=== PATIENT | female | born 1980 | race Caucasian/White ===

== ENCOUNTER 2016-07-22 11:17 | Emergency (ER) | payer BC ==
[2015-10-12 12:52] VITALS: Ht 172.7 cm; Wt 79.4 kg
[~2016-07-22] VITALS: Ht 172.7 cm; Wt 79.4 kg
--- NOTE | 2016-07-22 11:20 | NUR ---
Patient to ER bed 06 to gown for evaluation. Side rails up. Report given to Ruby
[2016-07-22 11:23] VITALS: BP 117/70; PULSE 59; RESP 18; TEMP 98.3; O2SAT 97
--- NOTE | 2016-07-22 11:35 | NUR ---
PT RECEIVED IN ROOM 6, ALERT, WITH CHIEF COMPLAINT OF VAGINAL BLEEDING, "I WAS HAVING ABDOMINAL CRAMPS LAST NIGHT AND THIS MORNING" " NO PAIN AT THIS TIME".
--- NOTE | 2016-07-22 11:42 | NUR ---
ER at bedside examining patient.
[2016-07-22 11:56] LABS: BILIRUBIN,URINE NEGATIVE (NEGATIVE); BLOOD, URINE 3+ (NEGATIVE); CLARITY/URINE CLEAR (CLEAR); COLOR,URINE YELLOW (YELLOW); GLUCOSE,URINE NEGATIVE (NEGATIVE); KETONES,URINE NEGATIVE (NEGATIVE); LEUKOCYTE ESTERASE ,URINE NEGATIVE (NEGATIVE); NITRITE, URINE NEGATIVE (NEGATIVE); PROTEIN URINE NEGATIVE (NEGATIVE); UROBILINOGEN,URINE 0.2 (0.2-1.0)
[2016-07-22 12:00] LABS: BASOPHILS # (AUTO) 0.1 K/uL (0.0-0.2); BASOPHILS % (AUTO) 0.9 % (0.0-2.0); EOSINOPHILS # (AUTO) 0.1 K/uL (0.0-0.4); EOSINOPHILS % (AUTO) 1.6 % (0.0-4.0); HEMATOCRIT 40.3 % (36-48); HEMOGLOBIN 13.6 g/dL (12.0-16.0); LYMPHOCYTES # (AUTO) 3.1 K/uL (1.0-5.5); MEAN CORPUSCULAR HEMOGLOBIN 31 pg (27-31); MEAN CORPUSCULAR HGB CONC 34 % (32-36); MEAN CORPUSCULAR VOLUME 92 fL (79.0-98.0); MONOCYTES # (AUTO) 0.5 K/uL (0.0-1.0); MONOCYTES % (AUTO) 5.6 % (1.7-9.3); NEUTROPHILS # (AUTO) 5.6 K/uL (1.8-7.7); NEUTROPHILS % (AUTO) 58.9 % (40.0-70.0); PLATELET COUNT (AUTO) 238 K/uL (130-430); RED BLOOD CELL COUNT(AUTO) 4.41 MIL/uL (4.2-6.2); RED CELL DISTRIBUTION WIDTH 12.3 % (9.0-15.0); WHITE BLOOD COUNT (AUTO) 9.4 K/uL (4.8-10.8)
--- NOTE | 2016-07-22 12:00 | NUR ---
BLOOD DRAWN BY STRIP TANK TENDER FOR TESTS.
[2016-07-22 12:08] LABS: BACTERIA,URINE RARE /HPF (None Seen); MUCUS,URINE 1+ /LPF (None Seen); WBC,URINE 0-3 /HPF (0-3)
--- NOTE | 2016-07-22 13:08 | NUR ---
Patient given written and verbal discharge instructions and verbalizes understanding. ER MD discussed with patient the results and treatment provided. Patient in stable condition. ID arm band removed. Rx of [place] given. Patient educated on pain management and to follow up with PMD. Pain Scale 0/10. Opportunity for questions provided and answered.
[2016-07-22 13:09] VITALS: BP 104/47; PULSE 50; RESP 16; O2SAT 97
== END 2016-07-22 13:09 | disposition home or self-care (01) ==
LOC: SED 11:17
DX: O21.9 Vomiting of pregnancy, unspecified (principal); Z3A.11 11 weeks gestation of pregnancy; Z88.5 Allergy status to narcotic agent; Z88.8 Allergy status to other drugs, medicaments and biological substances
CPT/HCPCS: 36415; 76805-TC; 81000-TC; 81025; 84702-TC; 85025; 86900; 86901; 99285

== ENCOUNTER 2016-07-25 06:35 | Day surgery (SDC) | payer BC ==
[~2016-07-25] VITALS: Ht 172.7 cm; Wt 78.9 kg
[2016-07-25 08:28] LABS: BASOPHILS # (AUTO) 0.1 K/uL (0.0-0.2); BASOPHILS % (AUTO) 0.8 % (0.0-2.0); EOSINOPHILS # (AUTO) 0.2 K/uL (0.0-0.4); EOSINOPHILS % (AUTO) 2.9 % (0.0-4.0); HEMATOCRIT 38.2 % (36-48); HEMOGLOBIN 12.6 g/dL (12.0-16.0); LYMPHOCYTES # (AUTO) 1.8 K/uL (1.0-5.5); MEAN CORPUSCULAR HEMOGLOBIN 31 pg (27-31); MEAN CORPUSCULAR HGB CONC 33 % (32-36); MEAN CORPUSCULAR VOLUME 93 fL (79.0-98.0); MONOCYTES # (AUTO) 0.5 K/uL (0.0-1.0); MONOCYTES % (AUTO) 7.8 % (1.7-9.3); NEUTROPHILS # (AUTO) 3.9 K/uL (1.8-7.7); NEUTROPHILS % (AUTO) 60.5 % (40.0-70.0); PLATELET COUNT (AUTO) 179 K/uL (130-430); RED BLOOD CELL COUNT(AUTO) 4.12 MIL/uL (4.2-6.2); RED CELL DISTRIBUTION WIDTH 12.7 % (9.0-15.0); WHITE BLOOD COUNT (AUTO) 6.5 K/uL (4.8-10.8)
[2016-07-25] MEDS ORDERED: PROPOFOL 200MG/ 20ML VIAL (DIPRIVAN) IV ONE (08:45)
[2016-07-25] MEDS ORDERED: fentaNYL CITRATE/PF 100 MCG/2 ML AMP IVP ONE (08:45)
[2016-07-25] MEDS ORDERED: SEVOFLURANE 15 MIN GAS INH ONE (08:45)
[2016-07-25] MEDS ORDERED: ONDANSETRON HCL 4 MG/2 ML VIAL IVP ONE (08:45)
[2016-07-25] MEDS ORDERED: METHYLERGONOVINE MALEATE 0.2 MG/ML AMP IM ONE (08:45)
[2016-07-25] MEDS ORDERED: MIDAZOLAM HCL 5 MG/5 ML VIAL IVP ONE (08:45)
[2016-07-25] MEDS ORDERED: KETOROLAC TROMETHAMINE 30 MG VIAL IVP ONE (08:45)
[2016-07-25] MEDS ORDERED: LR 1,000 ML IV SCH (09:28)
[2016-07-25] MEDS ORDERED: MEPERIDINE HCL/PF 25 MG/ML DISP.SYRIN IVP PRN ×2 (09:30)
[2016-07-25] MEDS ORDERED: KETOROLAC TROMETHAMINE 30 MG VIAL IVP PRN (09:30)
[2016-07-25] MEDS ORDERED: ONDANSETRON HCL 4 MG/2 ML VIAL IVP PRN ×2 (09:30→10:15)
[2016-07-25] MEDS ORDERED: PROMETHAZINE HCL 25 MG/ML AMP IM PRN (10:15)
[2016-07-25] MEDS ORDERED: HYDROmorphone 2 MG TAB PO PRN (10:15)
[2016-07-25 12:18] VITALS: BP_SYST 107
== END 2016-07-25 12:00 | disposition home or self-care (01) ==
LOC: SDS 06:35 → SMU 07:12 → SDS 12:00
PROVIDERS: ATTEND Obstetrics & Gynecology
DX: O02.1 Missed abortion (principal); Q96.9 Turner's syndrome, unspecified; K90.0 Celiac disease; Z98.890 Other specified postprocedural states
CPT/HCPCS: 36415; 59820; 85025; 86886; 86900; 86901; 88305; J1885; J2210; J2250; J2405; J2704; J3010; J7120

== ENCOUNTER 2017-06-25 00:01 | Inpatient (IN) | payer BC ==
[~2017-06-25] VITALS: Ht 172.7 cm; Wt 91.2 kg
[2017-06-25] MEDS ORDERED: LR 1,000 ML IV ONE (00:21)
[2017-06-25] MEDS ORDERED: OXYTOCIN/0.9 % SODIUM CHLORIDE 1,000 ML IV SCH ×3 (00:21→18:01)
[2017-06-25] MEDS ORDERED: LR 1,000 ML IV SCH (00:21)
[2017-06-25] MEDS ORDERED: TERBUTALINE SULFATE 1 MG/ML VIAL SUBCUT ONE (00:30)
[2017-06-25] MEDS ORDERED: NALBUPHINE HCL 10 MG/ML AMP IVP PRN (00:30)
[2017-06-25 01:20] LABS: HEMATOCRIT 28.1 % (36-48); HEMOGLOBIN 9.7 g/dL (12.0-16.0); MEAN CORPUSCULAR HEMOGLOBIN 31 pg (27-31); MEAN CORPUSCULAR HGB CONC 35 % (32-36); MEAN CORPUSCULAR VOLUME 91 fL (79.0-98.0); PLATELET COUNT (AUTO) 175 K/uL (130-430); RED BLOOD CELL COUNT(AUTO) 3.09 MIL/uL (4.2-6.2); WHITE BLOOD COUNT (AUTO) 9.9 K/uL (4.8-10.8)
[2017-06-25 01:53] LABS: BASOPHILS % (MANUAL) 0 % (0-2); EOSINOPHILS % (MANUAL) 3 % (0-7); LYMPHOCYTES % (MANUAL) 37 % (20-46); MONOCYTES % (MANUAL) 3 % (0-11)
[2017-06-25] MEDS ORDERED: fentaNYL CITRATE/PF 100 MCG/2 ML AMP ONE ×2 (03:15→12:56)
[2017-06-25] MEDS ORDERED: ROPIVACAINE 0.2% 100 ML ONE ×2 (03:15→12:57)
[2017-06-25] MEDS ORDERED: LR 500 ML IV ONE (08:23)
[2017-06-25] MEDS ORDERED: FENT2mCg/mL-ROPIVA0.2%/NS EPID 150 ML EP SCH (08:30)
[2017-06-25 11:21] VITALS: BP_SYST 106
[2017-06-25] MEDS ORDERED: OXYTOCIN/0.9 % SODIUM CHLORIDE 1,000 ML IV ONE ×2 (16:30→18:01)
[2017-06-25] MEDS ORDERED: METHYLERGONOVINE MALEATE 0.2 MG TABLET PO PRN (16:30)
[2017-06-25] MEDS ORDERED: LANOLIN 7 GM OINT. TP PRN (16:30)
[2017-06-25] MEDS ORDERED: DOCUSATE SODIUM 100 MG CAPSULE PO PRN (18:15)
[2017-06-25] MEDS ORDERED: DIPH-TET-PERTUS Vaccine 0.5 ML VIAL (ADACEL) I.M. PRN (18:15)
[2017-06-25] MEDS ORDERED: MEASLES,MUMPS&RUBELLA VACC/PF 12500 UNIT/0.5 ML VIAL SUBQ PRN (18:15)
[2017-06-25] MEDS ORDERED: SENNOSIDES/DOCUSATE SODIUM 1 TAB TABLET(SENOKOT-S) PO PRN (18:15)
[2017-06-25] MEDS ORDERED: HYDROCORTISONE 0.5%, 28.35 GM TOPICAL CREAM TP PRN (18:15)
[2017-06-25] MEDS ORDERED: DERMOPLAST SPRAY TP PRN (18:15)
[2017-06-25] MEDS ORDERED: ACETAMINOPHEN/CODEINE 300 MG-30 MG TABLET PO PRN (18:15)
[2017-06-25] MEDS ORDERED: RHO(D) IMMUNE GLOBULIN/MALTOSE 1500 UNITS/1.3 ML (WINHRO) IM PRN (18:15)
[2017-06-25] MEDS ORDERED: ANUSOL 1 EA SUPP.RECT (PREPARATION H) RC PRN (18:15)
[2017-06-25] MEDS ORDERED: GLYCERIN/WITCH HAZEL (TUCKS PADS) TP PRN (18:15)
[2017-06-25] MEDS: IBUPROFEN 600 MG TABLET PO SCH (18:23)
[2017-06-26] MEDS: IBUPROFEN 600 MG TABLET PO SCH ×3 (00:29→12:05)
[2017-06-26 07:12] LABS: BASOPHILS % (AUTO) 0.3 % (0.0-2.0); EOSINOPHILS # (AUTO) 0.3 K/uL (0.0-0.4); EOSINOPHILS % (AUTO) 2.2 % (0.0-4.0); HEMATOCRIT 29.1 % (36-48); HEMOGLOBIN 9.8 g/dL (12.0-16.0); LYMPHOCYTES # (AUTO) 2.2 K/uL (1.0-5.5); LYMPHOCYTES % (AUTO) 18.6 % (20.5-51.5); MEAN CORPUSCULAR HEMOGLOBIN 30 pg (27-31); MEAN CORPUSCULAR HGB CONC 34 % (32-36); MEAN CORPUSCULAR VOLUME 90 fL (79.0-98.0); MONOCYTES # (AUTO) 0.6 K/uL (0.0-1.0); NEUTROPHILS # (AUTO) 8.8 K/uL (1.8-7.7); NEUTROPHILS % (AUTO) 73.9 % (40.0-70.0); PLATELET COUNT (AUTO) 173 K/uL (130-430); RED BLOOD CELL COUNT(AUTO) 3.22 MIL/uL (4.2-6.2); RED CELL DISTRIBUTION WIDTH 12.4 % (9.0-15.0); WHITE BLOOD COUNT (AUTO) 11.9 K/uL (4.8-10.8)
== END 2017-06-26 18:00 | disposition home or self-care (01) | DRG 775 ==
LOC: SPU 00:01
PROVIDERS: ADMIT Obstetrics & Gynecology; ATTEND Obstetrics & Gynecology
PROC: 0HQ9XZZ Repair Perineum Skin, External Approach (ICD-10-PCS; principal; 2017-06-25)
PROC: 10E0XZZ Delivery of Products of Conception, External Approach (ICD-10-PCS; 2017-06-25)
PROC: 3E0R3BZ Introduction of Anesthetic Agent into Spinal Canal, Percutaneous Approach (ICD-10-PCS; 2017-06-25)
PROC: 00HU33Z Insertion of Infusion Device into Spinal Canal, Percutaneous Approach (ICD-10-PCS; 2017-06-25)
DX: O70.0 First degree perineal laceration during delivery (principal); Z37.0 Single live birth; Z3A.39 39 weeks gestation of pregnancy
CPT/HCPCS: 36415; 81002-TC; 85007; 85025; 85027; 86886; 86900; 86901; 94760; J2590; J2795; J3010

== ENCOUNTER 2023-05-06 12:23 | Inpatient (IN) | payer BC ==
[~2023-05-06] VITALS: Ht 172.7 cm; Wt 83.9 kg
[2023-05-06 12:23] VITALS: BP_SYST 163; PULSE 59; RESP 19; TEMP 98.2; O2SAT 100
[2023-05-06] MEDS ORDERED: ONDANSETRON HCL 4 MG/2 ML VIAL ONE (12:53)
[2023-05-06] MEDS: fentaNYL CITRATE/PF 100 MCG/2 ML AMP IVP ONE (12:54)
[2023-05-06] MEDS: NACL 0.9% 1,000 ML IV ONE (12:55)
[2023-05-06 13:14] LABS: BASOPHILS # (AUTO) 0.1 K/uL (0.0-0.2); EOSINOPHILS % (AUTO) 10.7 % (0.0-4.0); HEMATOCRIT 43.1 % (36-48); HEMOGLOBIN 14.7 g/dL (12.0-16.0); LYMPHOCYTES # (AUTO) 2.5 K/uL (1.0-5.5); LYMPHOCYTES % (AUTO) 26.9 % (20.5-51.5); MEAN CORPUSCULAR HEMOGLOBIN 32 pg (27-31); MEAN CORPUSCULAR HGB CONC 34 % (32-36); MEAN CORPUSCULAR VOLUME 93 fL (79.0-98.0); MONOCYTES # (AUTO) 0.3 K/uL (0.0-1.0); MONOCYTES % (AUTO) 3.3 % (1.7-9.3); NEUTROPHILS # (AUTO) 5.4 K/uL (1.8-7.7); NEUTROPHILS % (AUTO) 58.1 % (40.0-70.0); PLATELET COUNT (AUTO) 228 K/uL (130-430); RED BLOOD CELL COUNT(AUTO) 4.63 MIL/uL (4.2-6.2); RED CELL DISTRIBUTION WIDTH 12.8 % (9.0-15.0); WHITE BLOOD COUNT (AUTO) 9.3 K/uL (4.8-10.8)
[2023-05-06] MEDS: ONDANSETRON HCL 4 MG/2 ML VIAL IVP ONE (13:19)
[2023-05-06 13:30] LABS: CALCIUM 9.5 mg/dL (8.4-11.0); CREATININE 1.21 mg/dL (0.55-1.30); POTASSIUM 4.7 mmol/L (3.5-5.1)
[2023-05-06 13:44] LABS: ALBUMIN 3.5 g/dL (3.4-4.8); BILIRUBIN,DIRECT 0.1 mg/dL (0.0-0.3); TOTAL BILIRUBIN 0.7 mg/dL (0.0-1.0); TOTAL PROTEIN, SERUM 6.5 g/dL (6.4-8.3)
[2023-05-06] MEDS ORDERED: MORPHINE 4 MG INJ. 4 MG/ML VIAL IVP ONE (14:45)
[2023-05-06] MEDS ORDERED: MORPHINE 4 MG INJ. 4 MG/ML VIAL IVP PRN (16:00)
[2023-05-06] MEDS ORDERED: D5/0.45 NS 1,000 ML IV SCH (16:00)
[2023-05-06] MEDS ORDERED: OMEP20CA15 PO (16:31)
[2023-05-06 18:46] VITALS: BP_SYST 88; PULSE 45; RESP 18; TEMP 97.3; O2SAT 99
[2023-05-06 20:00] VITALS: BP_SYST 103; PULSE 50; RESP 16; TEMP 99; O2SAT 99
[2023-05-06] MEDS: NACL 0.9% 1,000 ML IV SCH (21:19)
[2023-05-06 22:01] VITALS: BP_SYST 3; PULSE 50; RESP 16; TEMP 99; O2SAT 97
[2023-05-07 00:23] VITALS: BP_SYST 95; PULSE 45; RESP 17; TEMP 97.6; O2SAT 96
[2023-05-07] MEDS: MORPHINE 2 MG/ML INJ. SYRINGE IVP PRN (00:54)
[2023-05-07 04:56] LABS: BASOPHILS % (AUTO) 0.4 % (0.0-2.0); EOSINOPHILS # (AUTO) 2.9 K/uL (0.0-0.4); EOSINOPHILS % (AUTO) 32.4 % (0.0-4.0); HEMATOCRIT 37.2 % (36-48); HEMOGLOBIN 12.5 g/dL (12.0-16.0); LYMPHOCYTES # (AUTO) 3.1 K/uL (1.0-5.5); LYMPHOCYTES % (AUTO) 34.5 % (20.5-51.5); MEAN CORPUSCULAR HEMOGLOBIN 32 pg (27-31); MEAN CORPUSCULAR HGB CONC 34 % (32-36); MEAN CORPUSCULAR VOLUME 94 fL (79.0-98.0); MONOCYTES # (AUTO) 0.5 K/uL (0.0-1.0); MONOCYTES % (AUTO) 5.2 % (1.7-9.3); NEUTROPHILS # (AUTO) 2.4 K/uL (1.8-7.7); NEUTROPHILS % (AUTO) 27.5 % (40.0-70.0); PLATELET COUNT (AUTO) 191 K/uL (130-430); RED BLOOD CELL COUNT(AUTO) 3.96 MIL/uL (4.2-6.2); RED CELL DISTRIBUTION WIDTH 12.9 % (9.0-15.0); WHITE BLOOD COUNT (AUTO) 8.8 K/uL (4.8-10.8)
[2023-05-07 05:12] LABS: CALCIUM 8.6 mg/dL (8.4-11.0); CREATININE 1.09 mg/dL (0.55-1.30); POTASSIUM 4.7 mmol/L (3.5-5.1)
[2023-05-07 08:00] VITALS: BP_SYST 91; PULSE 39; RESP 18; TEMP 97.5; O2SAT 98
[2023-05-07] MEDS: PANTOPRAZOLE SODIUM 40 MG/VIAL (PROTONIX) IVP SCH (08:41)
[2023-05-07] MEDS: MIDAZOLAM HCL 5 MG/5 ML VIAL ONE (10:46)
[2023-05-07] MEDS: MEPERIDINE 100 MG INJ. 100 MG/ML VIAL ONE (10:46)
[2023-05-07] MEDS: SIMETHICONE 40 MG/0.6 ML ML ONE (10:46)
[2023-05-07 12:00] VITALS: BP_SYST 97; PULSE 44; RESP 18; TEMP 97.4; O2SAT 100
[2023-05-07] MEDS ORDERED: DIATR MEGLU/DIATRIZ SOD 30 ML SOLUTION PO ONE (12:00)
[2023-05-07 16:00] VITALS: BP_SYST 109; PULSE 45; RESP 18; TEMP 97.4; O2SAT 98
[2023-05-07] MEDS: ONDANSETRON HCL 4 MG/2 ML VIAL IVP PRN (18:36)
[2023-05-07] MEDS: traMADol HCL HCL 50 MG TABLET (ULTRAM) PO PRN (21:21)
[2023-05-08 00:15] VITALS: BP_SYST 100; PULSE 43; RESP 17; TEMP 97.6
[2023-05-08 08:00] VITALS: BP_SYST 108; PULSE 49; RESP 20; TEMP 96.1; O2SAT 99
[2023-05-08 12:00] VITALS: BP_SYST 105; PULSE 38; RESP 20; TEMP 96.2; O2SAT 95
[2023-05-08] MEDS ORDERED: PANT20TA2 PO (13:18)
[2023-05-08 14:08] VITALS: BP_SYST 105; PULSE 38; RESP 20; TEMP 96.2; O2SAT 95
== END 2023-05-08 15:27 | disposition home or self-care (01) | DRG 391 ==
LOC: SED 12:23 → SMU 15:56
PROVIDERS: ADMIT Specialist; ATTEND Specialist
PROC: 0DB78ZX Excision of Stomach, Pylorus, Via Natural or Artificial Opening Endoscopic, Diagnostic (ICD-10-PCS; 2023-05-07)
PROC: 0DB68ZX Excision of Stomach, Via Natural or Artificial Opening Endoscopic, Diagnostic (ICD-10-PCS; 2023-05-07)
PROC: 0DB98ZX Excision of Duodenum, Via Natural or Artificial Opening Endoscopic, Diagnostic (ICD-10-PCS; principal; 2023-05-07 10:40)
DX: K29.70 Gastritis, unspecified, without bleeding (principal); K85.90 Acute pancreatitis without necrosis or infection, unspecified; K90.0 Celiac disease; K44.9 Diaphragmatic hernia without obstruction or gangrene; K29.80 Duodenitis without bleeding; Z88.5 Allergy status to narcotic agent
CPT/HCPCS: 36415; 43239; 76700; 80048; 80076; 83690; 85025; 87081; 87086; 88305; 88312; 88313; 96361; 96374; 96375; 99285; C9113; J2175; J2250; J2270; J2405; J3010; Q9964; Q9967